=== PATIENT | male | born 1985 | race Caucasian/White ===

== ENCOUNTER 2018-06-01 19:14 | Emergency (ER) | payer BC ==
--- NOTE | 2018-06-01 20:35 | EDM.PDOC ---
ED HPI GENERAL MEDICAL PROBLEM - General Chief Complaint: General Stated Complaint: FEVER AND ANKLE SWELLING WALK IN SENT HERE Time Seen by Provider: 06/01/18 20:12 Source of Information: Reports: Patient, RN Notes Reviewed History Limitations: Reports: No Limitations - History of Present Illness INITIAL COMMENTS - FREE TEXT/NARRATIVE: The patient states that he had chills this morning, while at work. He did not have any other symptoms, such as a headache, nasal or sinus congestion, cough, shortness of breath, nausea, vomiting, constipation, diarrhea, flank pain, or urinary symptoms. When he got home around 16:30, he checked his temperature and found it to be 104. He took 2 tablets of ibuprofen, then went to the walk-in clinic, where he was found to be afebrile. The patient states that his left ankle has been swollen for about 3 months. There is no pain to the ankle, and there is no history of trauma. He has been seeing his PCP, Cindy Carrington about it. He states that blood tests and an ultrasound were performed, and were normal. He states that she treated him with a course of prednisone, followed by a Medrol Dosepak, and he has now been on Bactrim DS since Friday night, 05/31/2018. According to the patient, because of the ankle swelling, the walk-in clinic did not feel that they could handle him, therefore sent him here for evaluation. The patient states that he had a cold about one week ago, and also had a rash to the medial aspect of his left leg that started 7 weeks ago, but resolved 6 weeks ago. Generalized Pain Score (Numeric/FACES): 3 - Related Data Allergies Allergy/AdvReac Type Severity Reaction Status Date / Time amoxicillin Allergy Other Verified 02/03/18 07:50 Penicillins Allergy Other Verified 02/03/18 07:50 Home Meds: Home Meds Sulfamethoxazole/Trimethoprim [Sulfamethoxazole-Tmp Ds Tablet] 1 tab PO BID [History] Past Medical History Endocrine/Metabolic History: Reports: Obesity/BMI 30+ - Past Surgical History HEENT Surgical History: Reports: Adenoidectomy Musculoskeletal Surgical History: Reports: Other (See Below) (Right knee surgery , open) Social & Family History - Tobacco Use Smoking Status *Q: Never Smoker - Caffeine Use Caffeine Use: Reports: Soda - Alcohol Use Alcohol Use History: Yes Alcohol Use Frequency: Socially - Recreational Drug Use Recreational Drug Use: No - Living Situation & Occupation Living situation: Reports: , with Spouse, with Family (2 kids) 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 ED EXAM, GENERAL - Physical Exam Exam: See Below Exam Limited By: No Limitations General Appearance: Alert, WD/WN, No Apparent Distress Eye Exam: Bilateral Eye: EOMI, Normal Inspection Ears: Normal External Exam, Hearing Grossly Normal Nose: Normal Inspection Throat/Mouth: Normal Inspection, Normal Lips, Normal Voice, No Airway Compromise Head: Atraumatic, Normocephalic Neck: Normal Inspection, Full Range of Motion Respiratory/Chest: No Respiratory Distress, Lungs Clear, Normal Breath Sounds, No Accessory Muscle Use Cardiovascular: Normal Peripheral Pulses, Regular Rate, Rhythm, No Gallop, No JVD, No Murmur, No Rub Peripheral Pulses: 4+: Radial (L), Radial (R) GI/Abdominal: Normal Bowel Sounds, Soft, Non-Tender, No Organomegaly, No Distention, No Abnormal Bruit, No Mass, Other (Obese) (Male) Exam: Deferred Rectal (Males) Exam: Deferred Back Exam: Normal Inspection, Full Range of Motion. No: CVA Tenderness (L), CVA Tenderness (R) Extremities: Normal Inspection, Normal Range of Motion, Non-Tender, Normal Capillary Refill, Other (Mild swelling noted to the left ankle. No associated erythema or tenderness.) Neurological: Alert, Oriented, Normal Cognition, Normal Gait (seen walking in ED ), No Motor/Sensory Deficits Psychiatric: Normal Affect Skin Exam: Warm, Dry, Intact, Normal Color, No Rash Course - Vital Signs Last Recorded V/S: Last Vital Signs Temp 37.6 C 06/01/18 19:25 Pulse 106 H 06/01/18 19:25 Resp 18 06/01/18 19:25 BP 133/81 06/01/18 19:25 Pulse Ox 96 06/01/18 19:25 - Orders/Labs/Meds Orders: Active Orders 24 hr Category Date Time Status Ankle Min 3V Lt [CR] Stat Exams 06/01/18 19:23 Taken - Re-Assessments/Exams Free Text/Narrative Re-Assessment/Exam: 06/01/18 20:30 As above, the patient reports having a fever up to 104 at home this afternoon, for which he took ibuprofen, but by the time he got to the walk-in clinic, he was afebrile, and he remains afebrile here in the ED. During the entire time, he had no other symptoms to suggest an infection, such as cough, dyspnea, abdominal pain, nausea, vomiting, diarrhea, or urinary symptoms. He has an edematous left ankle for which he is being treated with Bactrim DS, but clinically, he does not have a monoarthritis, as there is no pain associated with it. I don't believe it would be appropriate to go on a fishing expedition looking for a potential infection, therefore, unless the patient develops specific symptoms, such as a cough or abdominal pain or urinary symptoms, etc., I don't believe an emergency workup is indicated. This was explained to the patient, who agreed. Departure - Departure Time of Disposition: 20:32 Disposition: Home, Self-Care 01 Condition: Good Clinical Impression: Fever, Edema of left ankle - Discharge Information *PRESCRIPTION DRUG MONITORING PROGRAM REVIEWED*: Not Applicable *COPY OF PRESCRIPTION DRUG MONITORING REPORT IN PATIENT [place]: Not Applicable Instructions: Fever, Adult, Peripheral Edema Referrals: Bernarda Carrington CHILD CARE DEVELOPMENT SPECIALIST [Primary Care Provider] - Forms: ED Department Discharge Additional Instructions: You were seen in the emergency room after experiencing chills and a fever this afternoon. Because you have no other symptoms, such as a cough, shortness of breath, abdominal pain, diarrhea, urinary symptoms, or pain anywhere, and because you are already on an antibiotic, no specific workup was recommended. If you do develop specific symptoms, we recommend that you either follow-up with your PCP, Bernarda May, or return to the ER for reevaluation. - My Orders Last 24 Hours: My Active Orders 06/01/18 19:23 Ankle Min 3V Lt [CR] Stat - Assessment/Plan Last 24 Hours: My Active Orders 06/01/18 19:23 Ankle Min 3V Lt [CR] Stat
--- NOTE | 2018-06-02 07:39 | CR ---
Left ankle: Four views of the left ankle were obtained. Comparison: No previous study. Soft tissue swelling is identified. Ankle mortise is symmetric. No fracture, dislocation or other bony abnormality is seen. Impression: 1. Soft tissue swelling. No bony abnormality is identified on left ankle exam. Diagnostic code #1
== END 2018-06-01 21:00 | disposition home or self-care (01) ==
LOC: JD.ED 19:14
DX: R60.0 Localized edema (principal); R50.9 Fever, unspecified; E66.9 Obesity, unspecified; Z88.0 Allergy status to penicillin; Z88.1 Allergy status to other antibiotic agents
CPT/HCPCS: 73610-26-LT; 73610-LT; 99283; 99284

== ENCOUNTER 2023-11-22 21:52 | Emergency (ER) | payer BC | END 2023-11-22 23:52 | disposition home or self-care (01) | LOC: JD.ED 21:52 | DX: R55 Syncope and collapse (principal); E66.9 Obesity, unspecified; Z88.0 Allergy status to penicillin; Z79.899 Other long term (current) drug therapy; Z68.43 Body mass index [BMI] 50.0-59.9, adult | CPT/HCPCS: 93005; 93010; 99283; 99284 ==